=== PATIENT | male | born 1970 | race Caucasian/White ===

== ENCOUNTER 2020-06-01 10:18 | Emergency (ER) | payer OTHER ==
[~2020-06-01] VITALS: Ht 182.9 cm; Wt 122.5 kg
[2020-06-01] MEDS ORDERED: MELO7.5 PO (10:31)
[2020-06-01] MEDS ORDERED: AMLO10 PO (10:31)
[2020-06-01] MEDS ORDERED: PARO10 PO (10:32)
[2020-06-01] MEDS ORDERED: METO25 PO (10:32)
[2020-06-01] MEDS ORDERED: Lopressor 25 mg25 MG PO (10:49)
[2020-06-01] MEDS ORDERED: AMLODIPINE BESY10 MG PO (10:49)
== END 2020-06-01 11:02 | disposition home or self-care (01) ==
LOC: ER 10:18
DX: I10 Essential (primary) hypertension (principal); Z76.0 Encounter for issue of repeat prescription
CPT/HCPCS: 99282

== ENCOUNTER 2021-02-11 13:16 | Emergency (ER) | payer OTHER ==
[~2021-02-11] VITALS: Ht 182.9 cm; Wt 122.5 kg
[~2021-02-11 13:16] MED LIST: AMLO10 PO; AMLODIPINE BESY10 MG PO; Lopressor 25 mg25 MG PO; MELO7.5 PO; METO25 PO; PARO10 PO
[2021-02-11] MEDS ORDERED: SULTRIDS PO (15:58)
[2021-02-11] MEDS ORDERED: CEPH500 PO (15:58)
== END 2021-02-11 16:03 | disposition home or self-care (01) ==
LOC: ER 13:16
DX: L73.9 Follicular disorder, unspecified (principal); Z79.899 Other long term (current) drug therapy
CPT/HCPCS: 99282